=== PATIENT | female | born 1965 | race African-American/Black ===

== ENCOUNTER 2021-08-06 08:39 | Outpatient (CLI) | payer BC | END 2021-08-06 08:40 | disposition home or self-care (01) | LOC: MAMMO 08:39 | PROVIDERS: ATTEND Internal Medicine | DX: Z12.31 Encounter for screening mammogram for malignant neoplasm of breast (principal) | CPT/HCPCS: 77067 ==

== ENCOUNTER 2021-10-08 09:40 | Outpatient (CLI) | payer BC ==
[2021-10-08 10:30] LABS: Chol/HDL Ratio 2.76 %
== END 2021-10-08 09:41 | disposition home or self-care (01) ==
LOC: LAB 09:40
PROVIDERS: ATTEND Internal Medicine
DX: E78.5 Hyperlipidemia, unspecified (principal); R73.9 Hyperglycemia, unspecified
CPT/HCPCS: 36415; 80061; 83036

== ENCOUNTER 2022-02-11 10:16 | Outpatient (CLI) | payer BC ==
[2022-02-11 13:16] LABS: Chol/HDL Ratio 3.28 %
== END 2022-02-11 10:17 | disposition home or self-care (01) ==
LOC: LAB 10:16
PROVIDERS: ATTEND Internal Medicine
DX: E78.5 Hyperlipidemia, unspecified (principal)
CPT/HCPCS: 36415; 80061